=== PATIENT | female | born 1955 | race Caucasian/White ===

== ENCOUNTER 2023-12-31 09:36 | Emergency (ER) | payer BC, OTHER ==
[~2023-12-31] VITALS: Ht 162.6 cm; Wt 64.3 kg
[2023-12-31 10:43] VITALS: BP 136/86; PULSE 78; RESP 16; TEMP 98.2; O2SAT 98
[2023-12-31] MEDS ORDERED: PRED20TA2 PO (12:11)
[2023-12-31] MEDS ORDERED: METH-1181 PO (12:11)
== END 2023-12-31 12:15 | disposition home or self-care (01) ==
LOC: ER 09:36
DX: M50.10 Cervical disc disorder with radiculopathy, unspecified cervical region (principal); R51.9 Headache, unspecified; I10 Essential (primary) hypertension; Z88.2 Allergy status to sulfonamides; Z88.6 Allergy status to analgesic agent
CPT/HCPCS: 72040